=== PATIENT | male | born 1985 | race Caucasian/White ===

== ENCOUNTER 2025-01-16 20:19 | Observation (INO) | payer OTHER, SELFPAY ==
[2025-01-16 15:18] VITALS: BP 176/105
[2025-01-16 15:37] VITALS: BP 176/93
--- NOTE | 2025-01-16 15:44 | ED.GENMED ---
History of Present Illness
General
Chief Complaint: Heart Rate Problem
Time Seen by Provider: 01/16/25 15:41
Nursing documentation reviewed up to this point in time: agreed with
History of Present Illness
History of Present Illness:
39-year-old male presents to the ER for evaluation of palpitations and feeling of chest discomfort that occurred while he was at work today. Patient was up a ladder when he felt his heart began to race. He noted that his Apple Watch was telling
him his heart rate was high and irregular. He does have a prior history of atrial fibrillation although underwent ablation 1 year ago. He has been compliant with taking his medications including metoprolol and Pradaxa. He reports his symptoms
have improved at time of evaluation although he still has an awareness of his heart beating. No longer complaining of chest pain. No peripheral edema. He does admit to drinking some alcohol last night. No illicit drug use. He does not drink
caffeine. 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 He does take medications daily for hypertension also
Review of Systems
Review of Systems
Allergies reviewed?: Yes
Phy Exam
Physical Exam
Physical Exam:
Patient is awake, alert, obese, ruborous complexion, mucous membranes moist, conjunctiva pink, heart regular rate and rhythm no murmurs or ectopy, lungs are clear to auscultation without wheezes rales or rhonchi, abdomen is soft, obese, nontender,
he has a small reducible umbilical hernia, bilateral lower extremities without edema, 2+ DP pulses present symmetric, GCS is 15
Course
Orders/Labs/Results
Orders:
Orders
01/16/25 15:13
EKG [Electrocardiogram (*1)] Urgent
Reason for Study: Chest Pain
EKG- Treatment ONCE
01/16/25 15:45
Cardiac Monitoring- Treatment ONCE
Aspirin 325 mg PO NOW STA
CR Chest - 2 Views Urgent
Comment:
Reason For Exam: chest pain
Pulse Ox/cont/shift [RESP] Stat
Quantity: 1
01/16/25 15:47
Electrocardiogram (*1) Urgent
Reason for Study: Chest Pain
EKG- Treatment ONCE
01/16/25 15:54
0.9% Sodium Chloride 1000 ml [Nss] 1,000 ml IV BOLUS
01/16/25 15:57
Complete Blood Count/With Diff Urgent
Comprehensive Metabolic Panel Urgent
Magnesium Urgent
PTT Urgent
Prothrombin Time Urgent
TSH Urgent
Troponin I Urgent
01/16/25 18:01
Magnesium Sulfate 2 Gram/50 ml [Magnesium Sulfate] 2 gram in 50 ml IV NOW
01/16/25 18:02
EKG- Treatment ONCE
01/16/25 18:53
Metoprolol Xl [Toprol Xl] 100 mg PO NOW STA
01/16/25 18:55
Electrocardiogram (*1) Urgent
Reason for Study: Chest Pain
Troponin I Urgent
Abnormal Lab Results
01/16/25
15:57
RBC 3.69 L 10^6/uL
(4.70-6.10)
Hgb 12.6 L g/dL
(13.0-18.0)
Hct 37.3 L %
(39.0-52.0)
MCV 101.1 H fL
(80.0-94.0)
MCH 34.1 H pg
(27.0-31.0)
Glucose 104 H mg/dl
(70-99)
Magnesium 1.4 L mg/dl
(1.6-2.3)
01/16/25 15:57
01/16/25 15:57
Labs are reassuring with normal troponin. Mild hypomagnesemia seen
Vital Signs
Initial and Last Documented VS:
Initial Vital Signs
Temp Pulse Resp BP Pulse Ox
97.8 F 112 25 176/105 97
01/16/25 15:18 01/16/25 15:18 01/16/25 15:18 01/16/25 15:18 01/16/25 15:18
Last Documented Vital Signs
Temp Pulse Resp BP Pulse Ox
97.8 F 78 21 160/94 96
01/16/25 15:18 01/16/25 18:30 01/16/25 18:30 01/16/25 18:30 01/16/25 15:48
MDM/Problems Addressed
Differential Diagnosis Includes:
Differential diagnosis considered but not limited to arrhythmia, electrolyte dyscrasia, ACS, along with other etiologies considered
*Radiology
Radiology exam reviewed: preliminary read by ED provider (I independently viewed and interpreted two-view chest showing normal cardiac silhouette, no infiltrate)
*Pulse Oximetry
SaO2: 96
Oxygen Mode of Delivery: Room air
Patient hypoxic: no
*EKG
Interpreted by ED Provider?: Yes (I independently viewed and interpreted twelve-lead EKG showing sinus tachycardia, rate 112, nonspecific ST depressions in the lateral leads, likely rate related, no ST elevation, no prior for comparison)
*Director Of [employer] Interpretation
Rate: tachycardiac (I independently viewed and interpreted rhythm strip showing sinus tachycardia)
*Critical Care Note
Total Time (30-74mins, 75-104mins- exclusive of procedures): Not Applicable
Update Note
Update Note:
At time of evaluation I repeated EKG as heart rate was now normal. Repeated EKG and rhythm strip showed patient to be in normal sinus rhythm, rate 91, normal axis, ST depressions have resolved. I discussed with patient need for IV hydration and
labs. Will also check chest x-ray. He is not having any chest pain, just an awareness of palpitations. Aspirin ordered. Awaiting results
1900: I discussed with patient all test results including mild hypomagnesemia-patient reports that he takes 400 mg of magnesium oxide 3 times daily. I discussed with patient my concern for dynamic changes seen on EKG, which have resolved. Very
reassuring troponin. Patient agrees with plan for observation for further evaluation. Will discuss with hospitalist.
ED Attending Note
-
Portions of this chart may have been created with voice recognition software.� Occasional wrong word or��sound alike� substitutions may have occurred due to the inherent limitations of voice recognition software.
Discharge Plan
Departure
Patient Disposition: Admit
Date of Disposition: 01/16/25
Time of Disposition: 19:14
Presentation/result/management discussed w/ accepting MD/DO: Hospitalist
Discharge Problem:
Heart palpitations, Abnormal ECG, Hypomagnesemia
Referrals:
NONE,* [Family Provider, Internal Medicine]
Interventions
Interventions:
*Risk Screen - Suicide Last Done: 01/16/25 16:28
*General Assessment Last Done: 01/16/25 16:28
*Neglect/Abuse Screening Last Done: 01/16/25 16:28
*ED- Fall Risk Assessment Last Done: 01/16/25 16:28
*ED COVID-19 Vaccine History Last Done: 01/16/25 16:28
ED- Cardiac Assessment Last Done: 01/16/25 16:00
ED- Pulmonary Assessment Last Done: 01/16/25 16:00
Discharge Date and Time
Print Language: [place] ISLAND[place]
[2025-01-16 16:03] LABS: Hematocrit 37.3 % (39.0-52.0); Hemoglobin 12.6 g/dL (13.0-18.0); Mean Corp Hgb Conc. 33.8 g/dL (33.0-37.0); Mean Corpuscular Volume 101.1 fL (80.0-94.0); Nucleated Red Blood Cells % 0 % (-); Platelet Count 163 10^3/uL (130-400); Red Cell Dist. Width 12.9 % (11.5-14.5)
[2025-01-16] MEDS: NSS 1000 IV (16:07)
[2025-01-16] MEDS: ASPIRIN 325 MG PO (16:07)
[2025-01-16 16:14] LABS: INR 1.08; PT 14.3 Sec (11.4-14.6)
[2025-01-16 16:15] LABS: APTT 25.9 Sec (23.4-35.0)
[2025-01-16 16:24] LABS: ALT (SGPT) 46 U/L (0-50); AST (SGOT) 38 U/L (17-59); Albumin 4.6 g/dl (3.5-5.0); Alkaline Phosphatase 57 U/L (38-126); Blood Urea Nitrogen 17 mg/dl (9-20); Calcium 9.6 mg/dl (8.4-10.2); Carbon Dioxide 27 mmol/L (22-30); Chloride 103 mmol/L (98-107); Glucose 104 mg/dl (70-99); Magnesium 1.4 mg/dl (1.6-2.3); Potassium 4.2 mmol/L (3.5-5.1); Sodium 139 mmol/L (135-145); Total Protein 7.3 g/dl (6.3-8.2); eGFR > 60.00
[2025-01-16 16:26] LABS: Troponin I < 0.012 ng/ml
[2025-01-16 16:54] LABS: TSH 1.50 uIU/ml (0.47-4.68)
[2025-01-16] MEDS: MAGNESIUM SULFATE 50 IV (18:24)
[2025-01-16 18:30] VITALS: BP 160/94
[2025-01-16 19:00] VITALS: BP 171/99
[2025-01-16] MEDS: TOPROL XL 100 MG PO (19:20)
--- NOTE | 2025-01-16 19:35 | HPS.HSE ---
Family Physician
-
Family Physician: * NONE
Chief Complaint
-
Palpitations and chest pressure
History of Present Illness
This is a 39-year-old male with as past medical history significant for paroxysmal atrial fibrillation status post ablation, hypertension and on anticoagulation who presents to the emergency department with complaints of palpitations and chest
pressure.
He noted phase of chest discomfort and palpitations that occurred while he was [place] a [place] the farm today. He felt that this was similar to his prior episodes of palpitations and atrial fibrillation. He felt these heart flutter and has
some chest pressure and shortness of breath. He checked his wrist device which indicated a heart rate in the 140s similar to prior presentation. He states that he has been compliant with his medication and did take his metoprolol this morning. He
stated that he had an ablation 1 year ago and has had 1 episode of atrial fibrillation since then which was treated with cardioversion. He has since been on metoprolol succinate 100 twice daily since then without symptoms.
He denies any exertional chest pain recently. He denies dyspnea on exertion. He denies peripheral edema. He denies orthopnea or PND. He has no pleuritic chest pain. He drank some alcohol last night but denies caffeine use. He denies illicit
drug use. He had a stress test last year after his ablation and denies any known CAD.
In the emergency department he was hypertensive to 170/90 with a pulse of 78 satting 98% on room air. He was afebrile. ECG shows normal sinus rhythm with T wave inversions in the inferior leads initially. He repeat ECG shows normalization of the
the T wave inversions. His chest x-ray was clear. CBC was unremarkable. Electrolytes notable for emergency room 1.4 but otherwise unremarkable. BUN and creatinine were normal. TSH was within normal limits.
Medical History
Past Medical History
Past Medical History: Reports Arrhythmia (Proximal atrial fibrillation status post ablation) and HTN
Past Surgical History: Reports Other
Social History
Tobacco: Non-smoker
Alcohol: Occasional
Drug: None
Family History
Family History: Not pertinent
Allergies / Home Medications
Allergies reflects when Allergies were last updated in [facility].
Home Medications with original date entered in [facility]
Allergy/Medication List:
Allergies
Allergy/AdvReac Type Severity Reaction Status Date / Time
No Known Allergies Allergy Verified 01/16/25 15:23
Home Medications
candesartan 16 mg tablet 16 mg PO DAILY 01/16/25
dabigatran etexilate 150 mg capsule (Pradaxa) 150 mg PO BID 01/16/25
metoprolol succinate 100 mg tablet,extended release 24 hr 100 mg PO BID 01/16/25
Review of Systems
-
History Source: Patient
Constitutional: Reports No Symptoms
EENT: Reports No Symptoms
Respiratory: Reports No Symptoms
Cardiac: Reports Palpitations
Abdomen/GI: Reports No Symptoms
: Reports No Symptoms
Musculoskeletal: Reports No Symptoms
Skin: Reports No Symptoms
Neurological: Reports No Symptoms
Endocrine: Reports No Symptoms
Hematologic/Lymphatic: Reports No Symptoms
Psych: Reports No Symptoms
Physical Exam
Vital Signs
Vital Signs
Temp Pulse Resp BP Pulse Ox
97.8 F 78 21 171/99 96
01/16/25 15:18 01/16/25 19:20 01/16/25 18:30 01/16/25 19:20 01/16/25 15:48
Physical Exam
General: Well Developed, Well Nourished, No Apparent Distress and Obese
HEENT: NormoCephalic, Moist mucous membranes and Atraumatic
Respiratory: Clear
Cardiac: S1/S2 and Regular Rhythm; No Murmur or Rub
GI: Soft, Non Tender, Non Distended and Normal Bowel Sounds; No Organomegaly
Rectal: Deferred by Provider
Musculoskeletal: No Clubbing, No Cyanosis and No Edema
Skin: No Rash
Neuro: Nonfocal/grossly intact
Laboratory Results
-
01/16/25 15:57
01/16/25 15:57
Laboratory Results
PT 14.3 Sec (11.4-14.6) 01/16/25 15:57
INR 1.08 01/16/25 15:57
APTT 25.9 Sec (23.4-35.0) 01/16/25 15:57
Total Bilirubin 0.4 mg/dl (0.2-1.3) 01/16/25 15:57
AST 38 U/L (17-59) 01/16/25 15:57
ALT 46 U/L (0-50) 01/16/25 15:
Alkaline Phosphatase 57 U/L (38-126) 01/16/25 15:57
Troponin I < 0.012 ng/ml 01/16/25 15:57
Data Reviewed
-
Diagnostic Radiology: Image Personally Visualized and interpreted
Medical Tests (Nuc Med, Echo, EKG etc): Image Personally Visualized and interpreted
Lab Data: Labs Reviewed by me
Impression/Plan
-
IMPRESSION:
39-year-old with past medical history of atrial fibrillation and hypertension who presents to the emergency department with episode of palpitations and transient elevation in heart rate to the 140s suspicious for proximal atrial fibrillation. He is
currently in normal sinus rhythm and rate in the 80s. ECG showed initially T wave inversions in inferior lead which normalized on a repeat ECG. His troponin was negative. Chest x-ray was clear. His labs were normal except for a magnesium of 1.4.
He was given his evening dose of metoprolol.
PLAN:
Palpitations -suspect proximal atrial fibrillation that was symptomatic. Cannot rule out ACS although no prior history of CAD.
-Admit to telemetry observation
-Cycle cardiac enzyme
-Continue metoprolol succinate 100 mg twice daily
-Continue anticoagulation with Pradaxa
- If recurrent AFIB, can increase metoprolol dose to 150 bid
- if no events on tele, can follow up with outpatient cardiology for outpatient monitoring for afib burden and med titration
- given asa 325 x 1 for possible ACS given non-specific ST changes, monitor for cp and trop as above
- continue candesartan 16 HS, eplerenone 25 daily
- replete K, Mag to 4,2
DVT PPX - on pradaxa
Code status - Full Code
[2025-01-16 19:59] LABS: Troponin I < 0.012 ng/ml
[2025-01-16 20:00] VITALS: BP 173/100
[2025-01-16] MEDS: ATACAND 16 MG PO (20:39)
[2025-01-16] MEDS: PRADAXA 150 MG PO (20:39)
[2025-01-16 21:19] VITALS: BP 157/107
--- NOTE | 2025-01-16 22:16 | PTCARENOTE ---
Patient arrived to unit around 21:10 via stretcher. AAOx3. No c/o pain or discomfort at current time. Denies SOB. oriented to unit. Call rao within reach.
[2025-01-16 23:13] LABS: Troponin I < 0.012 ng/ml
[2025-01-17 00:08] VITALS: BP 151/85
[2025-01-17 03:41] VITALS: BP 146/87
[2025-01-17 06:26] LABS: ALT (SGPT) 40 U/L (0-50); AST (SGOT) 33 U/L (17-59); Albumin 4.0 g/dl (3.5-5.0); Alkaline Phosphatase 60 U/L (38-126); Blood Urea Nitrogen 16 mg/dl (9-20); Calcium 9.2 mg/dl (8.4-10.2); Carbon Dioxide 30 mmol/L (22-30); Chloride 102 mmol/L (98-107); Glucose 89 mg/dl (70-99); HDL Cholesterol 87 mg/dl; LDL Cholesterol, Calculated 102 mg/dl; Potassium 4.0 mmol/L (3.5-5.1); Sodium 136 mmol/L (135-145); Total Protein 6.6 g/dl (6.3-8.2); Very Low Density Lipoprotein 23 mg/dl (0-30); eGFR > 60.00
[2025-01-17] MEDS: TOPROL XL 100 MG PO (07:24)
[2025-01-17] MEDS: PRADAXA 150 MG PO (07:24)
[2025-01-17] MEDS: INSPRA 25 MG PO (07:25)
[2025-01-17 07:27] VITALS: BP 143/90
[2025-01-17 09:03] LABS: Glycohemoglobin (HgbA1c) 5.2 % (4.0-5.6)
[2025-01-17 11:14] VITALS: BP 142/85
--- NOTE | 2025-01-17 11:38 | W.PN.HOSP.TC ---
Today's Communication/Plan
-
Discharge
Encourage close follow-up with primary installer for possible MCOT (within 1 to 2 weeks if possible)
Assessment / Plan
Assessment / Plan
#Palpitations
#Abnormal ECG
#Paroxysmal AF s/p PVI and DCCV x 2
-Suspect that this was related to symptoms of his atrial fibrillation, similar occurrences noted in the past
-Presented with palpitations and 'fluttering' in his chest, ECG with inferior TWI that resolved on repeat
-Troponin negative x 3 here, symptomatically resolved as of this morning, never had chest pain
-Reviewed ECGs, no signs of Wellens pattern, de Perez or other high risk finding; no LEON or STD
-Home regimen currently includes Pradaxa and metoprolol succinate 100 mg twice daily
-HR was in 90s after arrival though closer to 60/min this morning, will hold off on increasing beta-trish
-Recommend patient follow-up with his primary installer for consideration of MCOT to quantify AF burden
-Monitor on telemetry while hospitalized
Anticipated Discharge: Today
Subjective/Interval History
-
Date of Service: January 17, 2025
Seen and examined at the bedside. No acute events reported overnight. AFVSS this morning
Heart rate with normal sinus rhythm, patient symptomatically resolved.
States he has had only 2-3 occurrences of similar symptoms in the past related to his AF, though usually followed by RVR that required him to go to the hospital and have cardioversions.
Objective Data
-
Labs:
Laboratory Results
01/17/25
05:03
Sodium 136
Potassium 4.0
Chloride 102
Carbon Dioxide 30
BUN 16
Creatinine 0.8
Glucose 89
Calcium 9.2
Total Bilirubin 0.9
AST 33
ALT 40
Alkaline Phosphatase 60
Vital Signs:
Vital Signs
Temp Pulse Resp BP Pulse Ox
98.1 F 62 16 142/85 97
01/17/25 11:14 01/17/25 11:14 01/17/25 11:14 01/17/25 11:14 01/17/25 11:14
I&O
01/16/25 01/17/25 01/18/25
06:59 06:59 06:59
Intake Total 480 / 480
Balance 480 / 480
Review of Systems
-
History Source: Patient
All other systems: Reviewed and negative
Physical Exam
-
General: Well Developed, No Apparent Distress and Obese
HEENT: Normocephalic, Atraumatic and Moist Mucous Membranes
Respiratory: Clear to Auscultation and Non Labored Respirations; Negative Accessory Resp Muscle Use
Cardiac: Regular Rhythm and S1/S2; Negative Murmur, Rub, JVD or Gallop
GI: Soft, Nontender, Nondistended and Normal Bowel Sounds
Musculoskeletal: No Clubbing, No Cyanosis and No Edema
Skin: Warm and Dry; Negative Rash
Neuro: AO x 3 and Nonfocal/Grossly Intact; Negative Tremors
Psych: Anxious
Data Reviewed
-
Labs: Labs Reviewed by me and Discussed with Patient
--- NOTE | 2025-01-17 13:06 | CM ---
Patient for d/c today. Initial assessment completed. Patient is a 39-year-old male with as past medical history significant for paroxysmal atrial fibrillation status post ablation, hypertension and on anticoagulation who presents to the emergency
department with complaints of palpitations and chest pressure.
Patient resides alone in a single story home, 2 steps to enter. Patient is independent in all areas, no DME. No therapy hx. Patient currently works.
Address, point of contact and insurance verified
PCP: Patient does not have one at this time. Patient stated he hasn't had the time to explore one.
Pharmacy: [facility]
Patient admitted obs. OOBS form verbally reviewed, copy on chart
Plan: Home, no needs
--- NOTE | 2025-01-17 15:20 | W.DCSUMMARY ---
Discharge Summary
Discharge Data
Date of Admission: 01/16/25
Date of Discharge: 01/17/25
Total time spent discharging patient (in min): 32
-
Pending Results: No
Hospital Course
39-year-old male with paroxysmal AF s/p PVI and DCCV x 2, anticoagulated with Pradaxa that presented to the hospital with palpitations. Had previous episodes where he developed palpitations and subsequently went into rapid ventricular response that
required hospitalization for DCCV. When he developed 'fluttering like sensation' he came to the hospital as he anticipated acceleration to his heart rate. Heart rate ultimately remained stable. Initial ECG had inferior T wave inversion that
resolved upon his 2 subsequent ECGs. Troponin was negative x 3 and patient quickly had symptomatic resolution. Was stable in normal sinus rhythm into the morning of 01/17/2025 and again remained asymptomatic. Patient stated that he had office visit
in early February with his primary tipple supervisor. I encouraged him to contact their office and ask if office visit could be moved forward due to his hospitalization. Deferred against increasing his metoprolol XL as heart rate prior to discharge
was near 60/min on home regimen. May need to consider outpatient Linq device or other ambulatory cardiac monitoring to assess atrial fibrillation burden. Discharged on home regimen of metoprolol XL 100 mg twice daily and Pradaxa for AC
Discharge Plan
-
Patient Disposition: Home (Routine Discharge)
Discharge Diagnosis/Procedures: Palpitations
Paroxysmal atrial fibrillation
History of pulmonary vein isolation, DCCV x 2
Condition: Good
Diet: Low Cholesterol and No added salt
Additional Diets: Make sure to drink at least 64 ounces of water daily, possibly more depending on your activity level
Activity: As tolerated
Driving Restrictions: As prior to admission
Bathing Restrictions: None
Blood Work: BMP, mag, Phos in 3 to 5 days
Activity Restrictions/Additional Instructions:
Follow-up with your family doctor after discharge, should be seen within 1 to 2 weeks of discharge from hospital
Contact your primary tipple supervisor and let them know you were recently hospitalized for palpitations, they may move up your previously scheduled office visit
If you develop recurrence of symptoms or new symptoms such as chest tightness or shortness of breath with walking or other activity then contact your tipple supervisor or return to the emergency department for further evaluation
Referral provided if needed: Family doctor, tipple supervisor
Instructions: Heart Palpitations
Referrals:
[facility] [Outside]
Jimmy Resendez MD [Active, Cardiology]
Referral Note: If new tipple supervisor needed
Additional Discharge Medication Instructions: Continue home medications as currently prescribed
We considered increasing the dose of your metoprolol succinate however on morning of discharge your heart rate was near 60/min so we kept your dose the same to prevent causing bradycardia (heart rate too slow)
Prescriptions:
New
eplerenone 25 mg Tablet
25 mg PO DAILY 30 Days Qty: 30 0RF
Continued
metoprolol succinate 100 mg Tablet Extended Release 24 Hr
100 mg PO DAILY
candesartan 16 mg Tablet
16 mg PO DAILY
dabigatran etexilate [Pradaxa] 150 mg Capsule
150 mg PO DAILY
Discharge Orders:
Discharge Patient (As Directed); Ordered 01/17/25
Ordered By: Deandre Lombardo
Discharge Date and Time
Discharge Date/Time: 01/17/25 13:37
Print Language: MOROCC[place]
== END 2025-01-17 13:37 | disposition home or self-care (01) ==
LOC: 4 WEST ACU 20:19
PROVIDERS: ADMITTING PHYSICIAN Internal Medicine; ATTENDING PHYSICIAN Internal Medicine; EMERGENCY PHYSICIAN Emergency Medicine
DX: R00.2 Palpitations (principal); R07.89 Other chest pain; I48.0 Paroxysmal atrial fibrillation; I10 Essential (primary) hypertension; E83.42 Hypomagnesemia; R00.0 Tachycardia, unspecified; R94.31 Abnormal electrocardiogram [ECG] [EKG]; Z60.2 Problems related to living alone; Z79.899 Other long term (current) drug therapy; Z79.01 Long term (current) use of anticoagulants
CPT/HCPCS: 71046; 80053; 80061; 83036; 83735; 84443; 84484; 85025; 85610; 85730; 93005; 96365; 96366; 99285; G0378